=== PATIENT | female | born 1990 ===

== ENCOUNTER 2019-12-23 00:37 | Inpatient (IN) | payer OTHER ==
[2019-12-23] MEDS ORDERED: Ondansetron 4 MG/2 ML SDV IVPUSH PRN (00:42)
[2019-12-23] MEDS ORDERED: Tranexamic Acid 1,000 MG in Sodium Chloride 0.9% 100 ML IV PRN (00:42)
[2019-12-23] MEDS ORDERED: Water For Irrigation,Sterile 1,000 ML Container IRR PRN (00:42)
[2019-12-23] MEDS ORDERED: Methylergonovine 0.2 MG/1 ML Amp IM PRN (00:42)
[2019-12-23] MEDS ORDERED: Sodium Chloride 0.9% 10 ML Syringe FLUSH PRN (00:42)
[2019-12-23] MEDS ORDERED: Sodium Chloride 0.9% 10 ML SDV IV PRN (00:42)
[2019-12-23] MEDS ORDERED: Sodium Chloride 0.9% 2.5 ML Syringe FLUSH PRN (00:42)
[2019-12-23] MEDS ORDERED: Lidocaine 1% 50 ML MDV INJECT PRN (00:42)
[2019-12-23] MEDS ORDERED: Terbutaline 1 MG/ML SDV SUBCUT PRN (00:42)
[2019-12-23] MEDS ORDERED: Misoprostol 25 MCG (1/4 of 100 MCG) Tab VAG PRN (00:42)
[2019-12-23] MEDS ORDERED: Carboprost Tromethamine 250 MCG/1 ML Amp IM PRN (00:42)
[2019-12-23] MEDS ORDERED: Nalbuphine 10 MG/1 ML Vial IVPUSH PRN (00:42)
[2019-12-23] MEDS ORDERED: Misoprostol 200 MCG Tab PO PRN (00:42)
[2019-12-23] MEDS ORDERED: Oxytocin/0.9 % Sodium Chloride 30 UNIT/500 ML BAG IV SCH ×2 (00:45)
[2019-12-23] MEDS ORDERED: Lactated Ringers 1,000 ML IV SCH (00:45)
[2019-12-23] MEDS: Misoprostol 25 MCG (1/4 of 100 MCG) Tab VAG PRN ×2 (08:34→13:23)
[2019-12-23] MEDS: Sodium Chloride 0.9% 1,000 ML IV SCH ×2 (18:16→20:45)
[2019-12-23] MEDS: Butorphanol 1 MG/ML SDV IVPUSH PRN ×2 (20:42→23:46)
[2019-12-24] MEDS ORDERED: Ropivacaine HCl/PF 0 ML ONE (01:46)
[2019-12-24] MEDS ORDERED: fentaNYL 100 MCG/2 ML SDV ONE (01:46)
[2019-12-24] MEDS ORDERED: oxyCODONE 5 MG Tab PO PRN (02:17)
[2019-12-24] MEDS ORDERED: Acetaminophen 500 MG Tab PO PRN ×2 (02:17)
[2019-12-24] MEDS ORDERED: Lanolin 100% Cream 7 GM Tube TOP PRN (02:17)
[2019-12-24] MEDS ORDERED: Ibuprofen 400 MG Tab PO PRN (02:17)
[2019-12-24] MEDS ORDERED: Ibuprofen 800 MG Tab PO PRN (02:17)
[2019-12-24] MEDS ORDERED: Docusate Sodium 100 MG Cap PO PRN (02:17)
[2019-12-24] MEDS ORDERED: Bisacodyl 10 MG Supp RECTAL PRN (02:17)
[2019-12-24] MEDS: Witch Hazel Medicated Pads 40/Jar TOP PRN (03:17)
[2019-12-24] MEDS: Benzocaine/Menthol 20%-0.5% Spray 78 GM Cannister TOP PRN (03:17)
--- NOTE | 2019-12-24 03:21 | OR ---
SURGEON: Hima Dhaliwal MD DATE OF PROCEDURE: 12/23/2019 INDICATION FOR PROCEDURE: A 29-year-old, G1, P0, at 40 weeks and 0 days, admitted for induction of labor. The patient had gestational diabetes that is well controlled with diet. She had otherwise uncomplicated , is GBS negative. She received 3 doses of Cytotec for induction of labor, then was started on Pitocin. She progressed to 4/70/-2, was juan david regularly. AROM was performed with clear amniotic fluid. The baby was consistently category 1 tracing. She received stadol with good pain control. She then quickly progressed to fully dilated and +2 station. She then began pushing with contractions. PREOPERATIVE DIAGNOSES: 1. Simpson intrauterine at 40 weeks and 0 days. 2. Diet-controlled gestational diabetes. POSTOPERATIVE DIAGNOSES: 1. Simpson intrauterine at 40 weeks and 0 days. 2. Diet-controlled gestational diabetes. PROCEDURE PERFORMED: Normal spontaneous vaginal delivery, repair of first-degree laceration. ANESTHESIA: Local anesthesia. FINDINGS: Viable male . scores of 8 and 9. weight of 6 lb10oz. Tight nuchal cord x1. ESTIMATED BLOOD LOSS: 200 mL. DESCRIPTION OF PROCEDURE: The patient pushed very well with contractions for approximately 5 minutes. The head delivered in the occiput anterior position, restituted ROT. Tight nuchal cord x1 was noted. Anterior shoulder delivered easily followed by posterior shoulder and remaining body. Nuchal cord was reduced after delivery. The baby was placed on maternal chest and evaluated by awaiting nursery staff. The baby was pink, crying, and moving all extremities immediately after delivery. The umbilical cord was clamped and cut after 60 seconds and no longer pulsating. The umbilical cord gases were obtained. The placenta was removed with gentle traction on the umbilical cord. It was examined and found to be intact with 3-vessel cord. A first-degree perineal laceration was noted. 10cc of 1% lidocaine with epi was used for local anesthesia. The first-degree laceration was repaired in the usual fashion with 3-0 Vicryl. The fundus was firm with fundal massage, and the bleeding was light. The patient tolerated the procedure well, and care instructions were reviewed. KEERTHI BURR /[id number] [facility]Que
--- NOTE | 2019-12-25 09:31 | PCM.PNPP ---
- General Info Date of Service: 12/25/19 Subjective Update: 29yo P1 s/p PPD 1 , Gestational DM , diet controlled Denies any complains , ambulating , voiding and tolerating regulating diet Functional Status: Reports: Pain Controlled, Tolerating Diet, Ambulating, Urinating - Review of Systems General: Reports: No Symptoms HEENT: Reports: No Symptoms Pulmonary: Reports: No Symptoms Cardiovascular: Reports: No Symptoms Gastrointestinal: Reports: No Symptoms Genitourinary: Reports: No Symptoms Musculoskeletal: Reports: No Symptoms Skin: Reports: No Symptoms Neurological: Reports: No Symptoms Psychiatric: Reports: No Symptoms - General Info Date of Service: 12/25/19 - Patient Data Vital Signs - Most Recent: Last Vital Signs Temp 35.4 C L 12/25/19 05:13 Pulse 66 12/25/19 05:13 Resp 15 12/25/19 05:13 BP 116/72 12/25/19 05:13 Pulse Ox 96 12/25/19 05:13 Weight - Most Recent: 68.946 kg Lab Results - Last 24 Hours: Laboratory Results - last 24 hr 12/23/19 12/25/19 Range/Units 01:25 06:00 Hgb 11.3 L (12.0-16.0) g/dL Hct 35.0 L (36.0-46.0) % RPR Non-Reac (Non-Reac) Med Orders - Current: Current Medications Acetaminophen (Tylenol Extra Strength) 500 mg PO Q4H PRN PRN Reason: Pain Acetaminophen (Tylenol Extra Strength) 1,000 mg PO Q4H PRN PRN Reason: Pain Benzocaine/Menthol (Dermoplast Pain Relief 20%-0.5% [place]) 78 gm TOP ASDIRECTED PRN PRN Reason: Perineal Comfort Measure Last Admin: 12/24/19 03:17 Dose: 1 can Documented by: Bisacodyl (Dulcolax) 10 mg RECTAL ONETIME PRN PRN Reason: Constipation Butorphanol Tartrate (Stadol) 1 mg IVPUSH Q1H PRN PRN Reason: Pain Last Admin: 12/23/19 23:46 Dose: 1 mg Documented by: Carboprost Tromethamine (Hemabate Ds) 250 mcg IM ASDIRECTED PRN PRN Reason: Post Hemorrhage Docusate Sodium (Colace) 100 mg PO BID PRN PRN Reason: Constipation Emollient Ointment (Lansinoh Hpa) 0 gm TOP ASDIRECTED PRN PRN Reason: Sore Nipples Oxytocin/Sodium Chloride (Oxytocin 30 Unit/500 Ml-Ns) 30 unit in 500 mls @ 999 mls/hr IV TITRATE CHRISTOPHER Tranexamic Acid 1,000 mg/ (Sodium Chloride) 110 mls @ 660 mls/hr IV ONETIME PRN PRN Reason: Bleeding Oxytocin/Sodium Chloride (Oxytocin 30 Unit/500 Ml-Ns) 30 unit in 500 mls @ 2 mls/hr IV TITRATE CHRISTOPHER; Protocol Last Titration: 12/23/19 23:15 Dose: 18 munits/min, 18 mls/hr Documented by: Lactated Ringer's (Ringers, Lactated) 1,000 mls @ 150 mls/hr IV ASDIRECTED CHRISTOPHER Sodium Chloride (Normal Saline) 1,000 mls @ 150 mls/hr IV ASDIRECTED CHRISTOPHER Last Admin: 12/23/19 20:45 Dose: 150 mls/hr Documented by: Ibuprofen (Motrin) 400 mg PO Q4H PRN PRN Reason: Pain Ibuprofen (Motrin) 800 mg PO Q6H PRN PRN Reason: Pain Last Admin: 12/24/19 21:12 Dose: 800 mg Documented by: Lidocaine HCl (Xylocaine 1%) 50 ml INJECT ONETIME PRN PRN Reason: Laceration repair Last Admin: 12/24/19 01:59 Dose: 50 ml Documented by: Methylergonovine Maleate (Methergine) 0.2 mg IM ASDIRECTED PRN PRN Reason: Post Hemorrhage Misoprostol (Cytotec) 200 mcg PO ONETIME PRN PRN Reason: Post Hemorrhage Misoprostol (Cytotec) 25 mcg VAG ONETIME PRN PRN Reason: Cervical Ripening Last Admin: 12/23/19 02:09 Dose: 25 mcg Documented by: Misoprostol (Cytotec) 25 mcg VAG Q4H PRN PRN Reason: Cervical Ripening Last Admin: 12/23/19 13:23 Dose: 25 mcg Documented by: Nalbuphine HCl (Nubain) 10 mg IVPUSH Q1H PRN PRN Reason: Pain (severe 7-10) Ondansetron HCl (Zofran) 4 mg IVPUSH Q4H PRN PRN Reason: Nausea/Vomiting Oxycodone HCl (Oxycodone) 5 mg PO Q2H PRN PRN Reason: Pain Sodium Chloride (Saline Flush) 10 ml FLUSH ASDIRECTED PRN PRN Reason: Keep Vein Open Sodium Chloride (Saline Flush) 2.5 ml FLUSH ASDIRECTED PRN PRN Reason: Keep Vein Open Sodium Chloride (Normal Saline) 10 ml IV ASDIRECTED PRN PRN Reason: IV Use Sterile Water (Sterile Water For Irrigation) 1,000 ml IRR ASDIRECTED PRN PRN Reason: delivery Terbutaline Sulfate (Brethine) 0.25 mg SUBCUT ASDIRECTED PRN PRN Reason: Tacysystole Witch Marifer (Tucks) 1 pad TOP ASDIRECTED PRN PRN Reason: comfort care Last Admin: 12/24/19 03:17 Dose: 1 tub Documented by: Discontinued Medications Fentanyl (Sublimaze) Confirm Administered Dose 100 mcg .ROUTE .STK-MED ONE Stop: 12/24/19 01:47 Last Admin: 12/24/19 04:53 Dose: Not Given Documented by: Ropivacaine (Naropin 0.2%) Confirm Administered Dose 100 mls @ as directed .ROUTE .STK-MED ONE Stop: 12/24/19 01:47 Last Admin: 12/24/19 04:53 Dose: Not Given Documented by: - Interaction Support Person: - Recovery Exam Fundal Tone: Firm Fundal Level: 1 Fingerbreadths Below Umbilicus Fundal Placement: Right Lochia Amount: Small Lochia Color: Rubra/Red Perineum Description: Other (see below) Other Perinuem Description: 1st degree laceration Episiotomy/Laceration: Approximated Bladder Status: Voiding Urinary Elimination: Voided - Exam General: Alert Neck: Supple Lungs: Clear to Auscultation Cardiovascular: Regular Rate, Regular Rhythm GI/Abdominal Exam: Normal Bowel Sounds Extremities: Normal Inspection Neurological: No New Focal Deficit - Problem List & Annotations (1) Vaginal delivery SNOMED Code(s): 893107248 Code(s): O80 - ENCOUNTER FOR FULL-TERM UNCOMPLICATED DELIVERY Status: Acute Current Visit: Yes - Problem List Review Problem List Initiated/Reviewed/Updated: Yes - Assessment Assessment:: 29yo P1 s/p PPD1 , Gestational DM - Plan Plan:: Discharge home
[2019-12-25] MEDS: Benzocaine/Menthol 20%-0.5% Spray 78 GM Cannister TOP PRN (15:39)
[2019-12-25] MEDS: Witch Hazel Medicated Pads 40/Jar TOP PRN (15:40)
== END 2019-12-25 16:30 | disposition home or self-care (01) | DRG 807 ==
LOC: MW.OBCHECK 00:37 → MW.OB 00:38 → MW.OBCHECK 00:42 → MW.OB 00:42 → OBSVTOIN 12-24 01:47 → MW.OB 12-24 03:04
PROVIDERS: ADMIT Obstetrics & Gynecology; ATTEND Obstetrics & Gynecology
PROC: 10E0XZZ Delivery of Products of Conception, External Approach (ICD-10-PCS; principal; 2019-12-24)
PROC: 10907ZC Drainage of Amniotic Fluid, Therapeutic from Products of Conception, Via Natural or Artificial Opening (ICD-10-PCS; 2019-12-24)
PROC: 0HQ9XZZ Repair Perineum Skin, External Approach (ICD-10-PCS; 2019-12-24)
PROC: 3E0P7VZ Introduction of Hormone into Female Reproductive, Via Natural or Artificial Opening (ICD-10-PCS; 2019-12-24)
PROC: 3E033VJ Introduction of Other Hormone into Peripheral Vein, Percutaneous Approach (ICD-10-PCS; 2019-12-24)
DX: O24.420 Gestational diabetes mellitus in childbirth, diet controlled (principal); Z37.0 Single live birth; Z3A.40 40 weeks gestation of pregnancy; O70.0 First degree perineal laceration during delivery; O69.1XX0 Labor and delivery complicated by cord around neck, with compression, not applicable or unspecified; Z20.828 Contact with and (suspected) exposure to other viral communicable diseases
CPT/HCPCS: 36415; 59025; 59409; 85014; 85018; 85027; 86592; 86850; 86900; 86901; A9270-GY; J0595; J2001; J2590; J2795; J3010; J7030; U0002

== ENCOUNTER 2021-09-11 19:23 | Inpatient (IN) | payer BC ==
[2021-09-11] MEDS: Lactated Ringers 1,000 ML IV SCH (19:40)
[2021-09-11] MEDS ORDERED: Methylergonovine 0.2 MG/1 ML Amp IM PRN (20:05)
[2021-09-11] MEDS ORDERED: Ondansetron 4 MG/2 ML SDV IVPUSH PRN (20:05)
[2021-09-11] MEDS ORDERED: Sodium Chloride 0.9% 20 ML SDV IV PRN (20:05)
[2021-09-11] MEDS ORDERED: Sodium Chloride 0.9% 2.5 ML Syringe FLUSH PRN (20:05)
[2021-09-11] MEDS ORDERED: Carboprost Tromethamine 250 MCG/1 ML Amp IM PRN (20:05)
[2021-09-11] MEDS ORDERED: Terbutaline 1 MG/ML SDV SUBCUT PRN (20:05)
[2021-09-11] MEDS ORDERED: Water For Irrigation,Sterile 1,000 ML Container IRR PRN (20:05)
[2021-09-11] MEDS ORDERED: Sodium Chloride 0.9% 10 ML Syringe FLUSH PRN (20:05)
[2021-09-11] MEDS ORDERED: Butorphanol 1 MG/ML SDV IVPUSH PRN (20:05)
[2021-09-11] MEDS ORDERED: Misoprostol 200 MCG Tab PO PRN (20:05)
[2021-09-11] MEDS ORDERED: Tranexamic Acid 1,000 MG in Sodium Chloride 0.9% 100 ML IV PRN (20:05)
[2021-09-11] MEDS ORDERED: Lidocaine 1% 50 ML MDV INJECT PRN (20:05)
[2021-09-11] MEDS ORDERED: Oxytocin/0.9 % Sodium Chloride 30 UNIT/500 ML BAG IV SCH ×2 (20:15)
[2021-09-11] MEDS ORDERED: ePHEDrine 50 MG/ML SDV IVPUSH PRN ×2 (23:10)
[2021-09-11] MEDS ORDERED: Phenylephrine HCl In 0.9% NaCl 1 MG/10 ML Vial IVPUSH SCH (23:15)
[2021-09-11] MEDS ORDERED: Ropivacaine HCl/PF 400 MG in Premix Bag 1 BAG EPIDUR SCH (23:15)
[2021-09-12] MEDS: Lactated Ringers 1,000 ML IV SCH (01:45)
[2021-09-12] MEDS ORDERED: Ibuprofen 800 MG Tab PO PRN (05:49)
[2021-09-12] MEDS ORDERED: Methylergonovine 0.2 MG/1 ML Amp IM PRN (05:49)
[2021-09-12] MEDS ORDERED: Docusate Sodium 100 MG Cap PO PRN (05:49)
[2021-09-12] MEDS ORDERED: Benzocaine/Menthol 20%-0.5% Spray 78 GM Cannister TOP PRN (05:49)
[2021-09-12] MEDS ORDERED: Acetaminophen 500 MG Tab PO PRN ×2 (05:49)
[2021-09-12] MEDS ORDERED: Witch Hazel Medicated Pads 40/Jar TOP PRN (05:49)
[2021-09-12] MEDS ORDERED: Tranexamic Acid 1,000 MG in Sodium Chloride 0.9% 100 ML IV PRN (05:49)
[2021-09-12] MEDS ORDERED: Lanolin 100% Cream 7 GM Tube TOP PRN (05:49)
[2021-09-12] MEDS ORDERED: Bisacodyl 10 MG Supp RECTAL PRN (05:49)
[2021-09-12] MEDS ORDERED: Ibuprofen 400 MG Tab PO PRN (05:49)
[2021-09-13] MEDS: Prenatal Multivitamin with Calcium/Folic Acid/Iron Tab PO SCH ×2 (09:22)
[2021-09-13] MEDS: Ferrous Sulfate 325 MG Tab PO SCH ×2 (09:22)
== END 2021-09-13 14:30 | disposition home or self-care (01) | DRG 560 ==
LOC: MW.OBCHECK 19:23 → MW.OB 19:23 → MW.OBCHECK 20:05 → MW.OB 20:06 → OBSVTOIN 09-12 04:16 → MW.OB 09-12 07:05
PROVIDERS: ADMIT Obstetrics & Gynecology; ATTEND Obstetrics & Gynecology
PROC: 10E0XZZ Delivery of Products of Conception, External Approach (ICD-10-PCS; principal; 2021-09-12)
PROC: 0KQM0ZZ Repair Perineum Muscle, Open Approach (ICD-10-PCS; 2021-09-12)
DX: O48.0 Post-term pregnancy (principal); Z3A.40 40 weeks gestation of pregnancy; Z37.0 Single live birth; O70.1 Second degree perineal laceration during delivery; Z20.822 Contact with and (suspected) exposure to COVID-19
CPT/HCPCS: 36415; 59025; 59409; 82803; 85014; 85018; 85027; 86592; 86850; 86900; 86901; A9270-GY; J2001; J2590; J7120; U0002